=== PATIENT | male | born 1995 | race Caucasian/White ===

== ENCOUNTER 2017-03-31 16:04 | Emergency (ER) | payer MEDICAID ==
[~2017-03-31] VITALS: Ht 177.8 cm; Wt 106.2 kg
[2017-03-31 16:58] VITALS: BP 130/80
== END 2017-03-31 16:58 | disposition home or self-care (01) ==
LOC: ED 16:04
DX: S89.91XA Unspecified injury of right lower leg, initial encounter (principal); Y93.51 Activity, roller skating (inline) and skateboarding; Y93.89 Activity, other specified; Y99.8 Other external cause status; Y92.89 Other specified places as the place of occurrence of the external cause